=== PATIENT | male | born 1930 | race Caucasian/White ===

== ENCOUNTER 2018-06-03 12:58 | Inpatient (IN) | payer MEDICARE ==
[2018-06-03 13:33] LABS: Basophils % (A) 0 %; Eosinophils # (A) 0.2 k/uL (0-0.7); Eosinophils % (A) 3 %; HCT 40.6 % (39.0-53.0); HGB 13.2 gm/dL (13.0-17.5); Lymphocytes # (A) 1.7 k/uL (1.0-4.8); Lymphocytes % (A) 31 %; MCH 30.2 pg (25.0-35.0); MCHC 32.6 g/dL (31.0-37.0); MCV 92.6 fL (80.0-100.0); Mean Platelet Volume 8.9; Monocytes # (A) 0.4 k/uL (0-1.0); Monocytes % (A) 7 %; Neutrophils # (A) 3.2 k/uL (1.3-7.7); Neutrophils % (A) 57 %; Platelet Count 111 k/uL (150-450); RBC 4.38 m/uL (4.30-5.90); RDW 13.8 % (11.5-15.5); WBC 5.6 k/uL (3.8-10.6)
[2018-06-03 13:45] LABS: Albumin 4.1 g/dL (3.5-5.0); Calcium 9.5 mg/dL (8.4-10.2); Magnesium 1.9 mg/dL (1.6-2.3); Potassium 4.3 mmol/L (3.5-5.1); Total Bilirubin 0.7 mg/dL (0.2-1.3); Total Protein 6.9 g/dL (6.3-8.2)
--- NOTE | 2018-06-03 13:49 | XR ---
EXAMINATION TYPE: XR chest 2V DATE OF EXAM: 06/03/2018 COMPARISON: 11/16/2011 INDICATION: Chest pain TECHNIQUE: Frontal and lateral views of the chest are obtained. FINDINGS: The heart size is enlarged. The pulmonary vasculature is normal. There is mild elevation left diaphragm. Some blunting left costophrenic angle is likely related atele ctasis.. IMPRESSION: 1. Blunting of the posterior lateral left costophrenic angle. Atelectasis is favored over effusion. 2. Lungs are otherwise clear.
[2018-06-03 13:52] LABS: D-Dimer 0.44 mg/L FEU (<0.60); INR 1.1 (<1.2); Partial Thromboplastin Time 28.6 sec (22.0-30.0); Prothrombin Time 10.5 sec (9.0-12.0)
[2018-06-03 14:13] LABS: Creatine Kinase MB 1.6 ng/mL (0.0-2.4)
--- NOTE | 2018-06-03 14:15 | ED ---
General Adult HPI - General Chief complaint: Chest Pain Stated complaint: Chest Pain Source: patient, family Mode of arrival: wheelchair - History of Present Illness Initial comments: Dictation was produced using [employer] dictation software. please excuse any grammatical, word or spelling errors. Chief Complaint: Patient is a 88-year-old male past medical history of A. fib, coronary artery disease, hyperlipidemia, hypertension presents with abnormal labs. History of Present Illness: Patient's story begins several weeks ago. Patient had blood drawn prior to a [place] check up appointment. There was findings of electrolyte abnormalities. He was told to seek medical attention with any worsening symptoms. He ended up with his primary care physician's office Dr. mcguire who ran some basic labs. He is found have elevated troponin and elevated d-dimer. Patient was told about these results and told to come to the emergency department. Patient has been complaining of intermittent chest pain. Patient is strongly difficult of hearing. History is mostly obtained by family member who is at bedside. Patient is on Coumadin for atrial fibrillation. - Related Data Home Medications Medication Instructions Recorded Confirmed Acetaminophen/Diphenhydramine 1 tab PO HS PRN 06/03/18 06/03/18 [Tylenol PM Extra Strength] Ammonium Lactate Cream [Lac-Hydrin 1 applic TOPICAL BID 06/03/18 06/03/18 12% Cream] Aspirin EC [Ecotrin Low Dose] 81 mg PO DAILY 06/03/18 06/03/18 Colchicine 0.6 mg PO BID 06/03/18 06/03/18 Docusate [Colace] 100 mg PO DAILY PRN 06/03/18 06/03/18 Furosemide [Lasix] 40 mg PO DAILY 06/03/18 06/03/18 Isosorbide Mononitrate ER [Imdur] 15 mg PO DAILY 06/03/18 06/03/18 Metoprolol Tartrate [Lopressor] 25 mg PO TID 06/03/18 06/03/18 Nitroglycerin Sl Tabs [Nitrostat] 0.4 mg SUBLINGUAL Q5M PRN 06/03/18 06/03/18 methylPREDNISolone Dose Pack See Taper PO DIRECTED 06/03/18 06/03/18 [Medrol Dose Pack] Allergies Allergy/AdvReac Type Severity Reaction Status Date / Time No Known Allergies Allergy Verified 06/03/18 14:38 Review of Systems ROS Statement: Those systems with pertinent positive or pertinent negative responses have been documented in the HPI. ROS Other: All systems not noted in ROS Statement are negative. Past Medical History Past Medical History: Atrial Fibrillation, Coronary Artery Disease (CAD), Hyperlipidemia, Hypertension History of Any Multi-Drug Resistant Organisms: None Reported Past Surgical History: Heart Catheterization With Stent Additional Past Surgical History / Comment(s): NASAL. CABG Past Psychological History: No Psychological Hx Reported Smoking Status: Former smoker Past Alcohol Use History: None Reported Past Drug Use History: None Reported General Exam - General Exam Comments Initial Comments: PHYSICAL EXAM: General Impression: Alert and oriented x3, not in acute distress HEENT: Normocephalic atraumatic, extra-ocular movements intact, pupils equal and reactive to light bilaterally, mucous membranes moist. 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 And also has had intermittent chest pain for the last several days. On arrival shows tachycardia 108.Laboratory evaluation obtained. CBC unremarkable. Coag panel is unremarkable. D-dimer 0.44. This is decreased compared to d-dimer performed by primary care physician. Metabolic panel obtained showing no acute processes. Abdominal labs are unremarkable. Troponin is 0.209. Patient appears comfortable at this time. CT angios of the chest was obtained showing no evidence of pulmonary embolism. There is mild cardiomegaly with small to moderate-sized left pleural effusion. Patient has elevated troponin with no other alternative for why his troponin is high. It is likely that patient's troponin is elevated secondary to cardiac damage versus troponin leak. Patient given aspirin. He started on nitro paste. Patient is on apixaban. We will withhold heparin at this time. EKG does show some ST depressions in precordial leads. There is reasonably that these represent ischemia. This likely secondary to rate dependent ischemia. Patient beta blockers for RVR control. Repeat EKG does not show any dynamic changes. EKG interpretation: Ventricular rate 106, atrial fibrillation, QRS 90, QTC 470. No RI prolongation, no QTC prolongation, no ST or T-wave changes noted. Overall, this EKG is unremarkable - Lab Data Result diagrams: 06/03/18 13:15 06/03/18 13:15 Lab Results 06/03/18 06/03/18 06/03/18 Range/Units 13:15 13:15 13:15 WBC 5.6 (3.8-10.6) k/uL RBC 4.38 (4.30-5.90) m/uL Hgb 13.2 (13.0-17.5) gm/dL Hct 40.6 (39.0-53.0) % MCV 92.6 (80.0-100.0) fL MCH 30.2 (25.0-35.0) pg MCHC 32.6 (31.0-37.0) g/dL RDW 13.8 (11.5-15.5) % Plt Count 111 L (150-450) k/uL Neutrophils % 57 % Lymphocytes % 31 % Monocytes % 7 % Eosinophils % 3 % Basophils % 0 % Neutrophils # 3.2 (1.3-7.7) k/uL Lymphocytes # 1.7 (1.0-4.8) k/uL Monocytes # 0.4 (0-1.0) k/uL Eosinophils # 0.2 (0-0.7) k/uL Basophils # 0.0 (0-0.2) k/uL PT (9.0-12.0) sec INR (<1.2) APTT (22.0-30.0) sec D-Dimer (<0.60) mg/L FEU Sodium 139 (137-145) mmol/L Potassium 4.3 (3.5-5.1) mmol/L Chloride 101 (98-107) mmol/L Carbon Dioxide 27 (22-30) mmol/L Anion Gap 11 mmol/L BUN 19 (9-20) mg/dL Creatinine 0.85 (0.66-1.25) mg/dL Est GFR (CKD-EPI)AfAm 89 (>60 ml/min/1.73 sqM) Est GFR (CKD-EPI)NonAf 77 (>60 ml/min/1.73 sqM) Glucose 98 (74-99) mg/dL Calcium 9.5 (8.4-10.2) mg/dL Magnesium 1.9 (1.6-2.3) mg/dL Total Bilirubin 0.7 (0.2-1.3) mg/dL AST 25 (17-59) U/L ALT 26 (21-72) U/L Alkaline Phosphatase 67 (38-126) U/L Total Creatine Kinase 45 L (55-170) U/L CK-MB (CK-2) 1.6 (0.0-2.4) ng/mL CK-MB (CK-2) Rel Index 3.6 Troponin I 0.209 H* (0.000-0.034) ng/mL Total Protein 6.9 (6.3-8.2) g/dL Albumin 4.1 (3.5-5.0) g/dL 06/03/18 Range/Units 13:15 WBC (3.8-10.6) k/uL RBC (4.30-5.90) m/uL Hgb (13.0-17.5) gm/dL Hct (39.0-53.0) % MCV (80.0-100.0) fL MCH (25.0-35.0) pg MCHC (31.0-37.0) g/dL RDW (11.5-15.5) % Plt Count (150-450) k/uL Neutrophils % % Lymphocytes % % Monocytes % % Eosinophils % % Basophils % % Neutrophils # (1.3-7.7) k/uL Lymphocytes # (1.0-4.8) k/uL Monocytes # (0-1.0) k/uL Eosinophils # (0-0.7) k/uL Basophils # (0-0.2) k/uL PT 10.5 (9.0-12.0) sec INR 1.1 (<1.2) APTT 28.6 (22.0-30.0) sec D-Dimer 0.44 (<0.60) mg/L FEU Sodium (137-145) mmol/L Potassium (3.5-5.1) mmol/L Chloride (98-107) mmol/L Carbon Dioxide (22-30) mmol/L Anion Gap mmol/L BUN (9-20) mg/dL Creatinine (0.66-1.25) mg/dL Est GFR (CKD-EPI)AfAm (>60 ml/min/1.73 sqM) Est GFR (CKD-EPI)NonAf (>60 ml/min/1.73 sqM) Glucose (74-99) mg/dL Calcium (8.4-10.2) mg/dL Magnesium (1.6-2.3) mg/dL Total Bilirubin (0.2-1.3) mg/dL AST (17-59) U/L ALT (21-72) U/L Alkaline Phosphatase (38-126) U/L Total Creatine Kinase (55-170) U/L CK-MB (CK-2) (0.0-2.4) ng/mL CK-MB (CK-2) Rel Index Troponin I (0.000-0.034) ng/mL Total Protein (6.3-8.2) g/dL Albumin (3.5-5.0) g/dL Disposition Clinical Impression: Elevated troponin Disposition: ADMITTED IP TO THIS HOSP Condition: Fair Referrals: Sharla Crawford MD [Primary Care Provider] - 1-2 days Decision Time: 16:36
[2018-06-03 14:17] LABS: Troponin I 0.209 ng/mL (0.000-0.034)
--- NOTE | 2018-06-03 15:34 | CT ---
EXAMINATION TYPE: CT angio chest DATE OF EXAM: 06/03/2018 COMPARISON: Chest x-ray earlier today HISTORY: Chest pain and weakness. CT DLP: 574.1 mGycm. Automated Exposure Control for Dose Reduction was Utilized. CONTRAST: CTA scan of the thorax is performed with IV Contrast, patient injected with 87ml mL of Isovue 370, pu lmonary embolism protocol. MIP Images are created on CT scanner and reviewed. FINDINGS: LUNGS: Elevated left hemidiaphragm is present. There is small to moderate-sized left pleural fluid ef fusion or fluid collection. Small amount of fluid is seen within the fissures of the left lung. There is 7 mm calcified nodule left mid lung anteriorly axial image 74. There is left basilar atelectasis and/or Limited infiltrate just above elevated left hemidiaphragm. Right lung is predominantly clear, some patchy dependent atelectasis is present.. MEDIASTINUM: There is satisfactory enhancement of the pulmonary artery and its branches, there is no CT evidence for pulmonary embolism. There are no greater than 1 cm hilar or mediastinal lymph nodes. No significant pericardial effusion is seen. Cardiomegaly is present. There is moderate to severe left atrial dilatation. Post CABG changes with mediastinal clips and sternal wires is identified. The re is reflux of contrast into IVC and hepatic veins suggesting right heart failure. There is moderate to severe calcified plaque of descending aorta. There is ascending aortic aneurysm measuring up to 4 .3 cm diameter on axial image 60. OTHER: There is moderate multilevel anterior and lateral spurring in the mid to lower thoracic spine . IMPRESSION: 1. No CT evidence for acute pulmonary embolism. Cardiomegaly with small to moderate-sized left pleural effusion and associated basilar atelectasis and/or Limited acute infiltrate.
[2018-06-03] MEDS ORDERED: NITROGLYCERIN OINT 1 INCH/GM PACKET TOPICAL STA (16:14)
[2018-06-03] MEDS ORDERED: ASPIRIN 81 MG PO STA (16:14)
[2018-06-03] MEDS ORDERED: NITROGLYCERIN SL TABS 0.4 MG TAB SUBLINGUAL PRN ×2 (16:14→18:13)
[2018-06-03] MEDS ORDERED: ACETAMINOPHEN TAB 500 MG TAB PO PRN (18:13)
[2018-06-03] MEDS ORDERED: DOCUSATE 100 MG CAP PO PRN (18:13)
[2018-06-03] MEDS ORDERED: diphenhydrAMINE 25 MG CAP PO PRN (18:19)
[2018-06-03 19:38] LABS: Creatine Kinase MB 2.1 ng/mL (0.0-2.4)
[2018-06-03 19:41] LABS: Troponin I 0.357 ng/mL (0.000-0.034)
[2018-06-03] MEDS: AMMONIUM LACTATE 12% CREAM 140 GM TUBE TOPICAL SCH (19:58)
[2018-06-03] MEDS: ATORVASTATIN 40 MG TAB PO SCH (19:58)
[2018-06-03] MEDS: METOPROLOL TARTRATE 25 MG TAB PO SCH (19:59)
[2018-06-03] MEDS: COLCHICINE 0.6 MG EACH PO SCH (19:59)
[2018-06-03] MEDS ORDERED: APIXABAN 2.5 MG TABLET PO SCH (21:00)
--- NOTE | 2018-06-03 21:50 | P.HPIM ---
History of Present Illness H&P Date: 06/03/18 88 years old male patient of Dr. Crawford with the past medical history of atrial fibrillation, coronary artery disease status post triple-vessel CABGwith recent stent in 2009 comes in with acute onset substernal chest pain past associated with shortness of breath. He was seen in the office by Dr. Crawford.Patient had recent blood chronically checkup appointment and was found to have some electrolyte abnormality. Patient is found to the hospital by Dr. Crawford for evaluation. On evaluation in the ER patient had 0.209 with a second troponin 0.357. EKG showed significant ST depression in lead V1 to V6 with a rhythm in atrial fibrillation Chest pain improved with nitroglycerin paste. Patient was continued oneliquis . Cardiology consult was placed with plan for cardiac cath morning. Patient will be nothing by mouth Review of Systems Constitutional: Denies chills, Denies fever, Denies lethargy, Denies malaise, Denies poor appetite, Denies weakness, Denies weight loss Eyes: denies decreased vision, denies diplopia, denies discharge, denies pain Ears: deny: decreased hearing Ears, nose, mouth and throat: Denies dental pain, Denies headache, Denies nasal discharge, Denies nose pain Cardiovascular: Endorses chest pain, endorses decreased exercise tolerance, Denies edema, Denies high blood pressure, endorses irregular heart beat, Denies palpitations, Denies paroxysmal nocturnal dyspnea, Denies rapid heart beat, e ndorses shortness of breath Respiratory: Denies congestion, Denies cough, Denies cough with sputum, Denies dyspnea, Denies home oxygen, Denies wheezing Gastrointestinal: Denies abdominal pain, Denies change in bowel habits, Denies coffee ground emesis, Denies early satiety, Denies excessive gas, Denies heartburn, Denies hematemesis, Denies hematochezia, Denies loss of appetite, Denies nausea, Denies vomiting Genitourinary: Denies dysuria, Denies flank pain, Denies kidney stones, Denies menorrhagia, Denies urgency, Denies urinary frequency Musculoskeletal: Denies gait dysfunction, Denies limitation of motion, Denies morning stiffness, Denies muscle cramps Integumentary: Denies rash, Denies wounds, Denies brittle nails, Denies change in hair/nails, Denies darkening of skin Neurological: Denies balance difficulties, Denies change in speech, Denies double vision, Denies gait dysfunction, Denies loss of vision, Denies motor disturbance, Denies numbness, Denies paralysis, Denies paresthesias, Denies seizures Psychiatric: Denies anxiety, Denies depression Endocrine: Denies excessive sweating, Denies excessive thirst, Denies high blood sugars, Denies palpitations Hematologic/Lymphatic: Denies easy bruising, Denies lymphadenopathy Past Medical History Past Medical History: Atrial Fibrillation, Coronary Artery Disease (CAD), Cancer , GERD/Reflux, Hyperlipidemia, Hypertension, Myocardial Infarction (ND), Osteoarthritis (OA), Prostate Disorder Additional Past Medical History / Comment(s): skin cancer(nose), gout, past shingles 2-3 years ago and since has had a shingles vaccine 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 Last Myocardial Infarction Date:: 1998, not sure if he had one in 2009 or not History of Any Multi-Drug Resistant Organisms: None Reported Past Surgical History: Adenoidectomy, Coronary Bypass/CABG, Heart Catheterization With Stent, Prostate Surgery, Tonsillectomy Additional Past Surgical History / Comment(s): triple vessle cabg- valles to lad, svg toom and svg to rca,colonoscopy,. prostatectomy(pt stated not cancer), carpal tunnel pt not sure what side) Past Anesthesia/Blood Transfusion Reactions: No Reported Reaction Date of Last Stent Placement:: 2009 Smoking Status: Former smoker - Past Family History Mother Family Medical History: No Reported History Additional Family Medical History / Comment(s): from old age Father Family Medical History: Cancer Additional Family Medical History / Comment(s): throat cancer Medications and Allergies Home Medications Medication Instructions Recorded Confirmed Type Acetaminophen/Diphenhydramine 1 tab PO HS PRN 06/03/18 06/03/18 History [Tylenol PM Extra Strength] Ammonium Lactate Cream [Lac-Hydrin 1 applic TOPICAL BID 06/03/18 06/03/18 History 12% Cream] Aspirin EC [Ecotrin Low Dose] 81 mg PO DAILY 06/03/18 06/03/18 History Colchicine 0.6 mg PO BID 06/03/18 06/03/18 History Docusate [Colace] 100 mg PO DAILY PRN 06/03/18 06/03/18 History Furosemide [Lasix] 40 mg PO DAILY 06/03/18 06/03/18 History Isosorbide Mononitrate ER [Imdur] 15 mg PO DAILY 06/03/18 06/03/18 History Metoprolol Tartrate [Lopressor] 25 mg PO TID 06/03/18 06/03/18 History Nitroglycerin Sl Tabs [Nitrostat] 0.4 mg SUBLINGUAL Q5M PRN 06/03/18 06/03/18 History methylPREDNISolone Dose Pack See Taper PO DIRECTED 06/03/18 06/03/18 History [Medrol Dose Pack] Allergies Allergy/AdvReac Type Severity Reaction Status Date / Time No Known Allergies Allergy Verified 06/03/18 14:38 Physical Exam Vitals: Vital Signs Temp Pulse Pulse Pulse Resp BP BP 06/03/18 20:00 97.4 F L 75 16 102/61 06/03/18 17:30 96.3 F L 90 18 136/87 06/03/18 16:52 98 F 83 18 136/80 06/03/18 16:10 113 H 16 132/90 06/03/18 15:05 71 16 149/70 06/03/18 14:29 94 18 145/73 06/03/18 13:23 108 H 18 06/03/18 13:03 101 H 18 156/98 06/03/18 13:00 98.1 F 113 H 18 113/75 Pulse Ox 06/03/18 20:00 96 06/03/18 17:30 98 06/03/18 16:52 98 06/03/18 16:10 100 06/03/18 15:05 100 06/03/18 14:29 100 06/03/18 13:23 06/03/18 13:03 100 06/03/18 13:00 98 Intake and Output 06/03/18 06/03/18 06/03/18 06:59 14:59 22:59 Other: Weight 78.018 kg - Constitutional General appearance: cooperative, no acute distress, obese - EENT Eyes: anicteric sclerae, PERRLA, normal appearance ENT: hearing grossly normal - Neck Neck: no lymphadenopathy, normal ROM, no other, no rigidity, no stridor, no thyromegaly - Respiratory Respiratory: bilateral: CTA, negative: diminished, dullness, rales, rhonchi - Cardiovascular Rhythm: Irregularly irregular Heart sounds: normal: S1, S2 Abnormal Heart Sounds: 2+ systolic murmur, no diastolic murmur, no rub, no S3 Gallop, no S4 Gallop, no click, no other - Gastrointestinal General gastrointestinal: normal bowel sounds, soft nontender - Integumentary Integumentary: no rash - Neurologic Neurologic: CNII-XII intact - Musculoskeletal Musculoskeletal: Gait not assessed, strength equal bilaterally - Psychiatric Psychiatric: A&O x's 3, appropriate affect Results CBC & Chem 7: 06/03/18 13:15 06/03/18 13:15 Labs: Abnormal Lab Results - Last 24 Hours (Table) 06/03/18 06/03/18 06/03/18 Range/Units 13:15 13:15 18:57 Plt Count 111 L (150-450) k/uL Total Creatine Kinase 45 L 47 L (55-170) U/L Troponin I 0.209 H* 0.357 H* (0.000-0.034) ng/mL Thrombosis Risk Factor Assmnt - DVT/VTE Prophylaxis DVT/VTE Prophylaxis: Pharmacologic Prophylaxis ordered Assessment and Plan Plan: #1 acute chest pain likely cardiac with previous history of coronary artery disease. Switch eliquis to heparin drip. Nothing by mouth after midnight. Cardiology consult. EKG with significant ST depression V1 to V6 consistent with anterior lateral infarct. Echocardiogram ordered for the morning. Repeat EKG in the morning. Possible cardiac cath in the morning #2 history of coronary artery disease status post cardiac bypass with recent stent in 2009. Continue daily aspirin, metoprolol 25 twice a day, Lipitor 40 mg daily at bedtime #3 bilateral pleural effusion on CTA . Switch to by mouth Lasix to IV Lasix 40 daily. Hold if systolic blood pressure less than 90. Echocardiogram ordered #4 history of atrial fibrillation. Continue digoxin. Metoprolol 25 mg twice a day 5 hypertension continue metoprolol 25 po Twice daily. Lasix IV 40 by mouth daily. Hold systolic blood pressure less than 90 #6 hyperlipidemia continue atorvastatin 40 mg by mouth daily #DVT prophylaxis with heparin drip #8 GI prophylaxis with Pepcid 20 mg by mouth daily CODE STATUS DO NOT RESUSCITATE Disposition patient may need 1-2 inpatient nights with possible cardiac cath this morning
[2018-06-03] MEDS: NITROGLYCERIN OINT 1 INCH/GM PACKET TOPICAL SCH (23:54)
[2018-06-04 03:17] LABS: Cholesterol 125 mg/dL (<200); HDL Cholesterol 37 mg/dL (40-60); LDL Cholesterol,Calculated 72 mg/dL (0-99); Triglycerides 79 mg/dL (<150)
[2018-06-04 03:39] LABS: Creatine Kinase MB 3.1 ng/mL (0.0-2.4)
[2018-06-04 03:40] LABS: Basophils % (A) 0 %; Eosinophils # (A) 0.2 k/uL (0-0.7); Eosinophils % (A) 3 %; HCT 37.1 % (39.0-53.0); Lymphocytes # (A) 1.1 k/uL (1.0-4.8); Lymphocytes % (A) 22 %; MCH 30.3 pg (25.0-35.0); MCHC 32.3 g/dL (31.0-37.0); MCV 93.9 fL (80.0-100.0); Mean Platelet Volume 8.9; Monocytes # (A) 0.4 k/uL (0-1.0); Monocytes % (A) 7 %; Neutrophils # (A) 3.4 k/uL (1.3-7.7); Neutrophils % (A) 66 %; RBC 3.95 m/uL (4.30-5.90); RDW 13.9 % (11.5-15.5); WBC 5.2 k/uL (3.8-10.6)
[2018-06-04 03:41] LABS: Platelet Count 99 k/uL (150-450); Troponin I 0.725 ng/mL (0.000-0.034)
[2018-06-04] MEDS: NITROGLYCERIN OINT 1 INCH/GM PACKET TOPICAL SCH ×4 (06:15→23:50)
[2018-06-04] MEDS: METOPROLOL TARTRATE 25 MG TAB PO SCH ×2 (07:43→20:12)
[2018-06-04] MEDS: ASPIRIN 81 MG PO SCH (07:43)
[2018-06-04] MEDS: COLCHICINE 0.6 MG EACH PO SCH ×2 (07:43→20:12)
[2018-06-04] MEDS: FUROSEMIDE 10 MG/ML 4 ML VIAL IV SCH (07:44)
[2018-06-04] MEDS: AMMONIUM LACTATE 12% CREAM 140 GM TUBE TOPICAL SCH ×2 (07:44→20:11)
[2018-06-04] MEDS ORDERED: HEPARIN SOD,PORK IN 0.45% NACL 25,000 UNIT in 0.45% NACL 1 500ML.BAG IV SCH (08:00)
[2018-06-04] MEDS ORDERED: HEPARIN SODIUM,PORCINE 5,000 UNIT/ML 1 ML VIAL IV ONE (08:00)
[2018-06-04] MEDS ORDERED: HEPARIN SODIUM,PORCINE 5,000 UNIT/ML 1 ML VIAL IV PRN (08:00)
[2018-06-04] MEDS ORDERED: FUROSEMIDE 40 MG TAB PO SCH (09:00)
[2018-06-04] MEDS ORDERED: DIGOXIN 125 MCG TAB PO SCH (09:00)
[2018-06-04] MEDS ORDERED: ASPIRIN 325 MG TAB PO SCH (09:00)
--- NOTE | 2018-06-04 10:00 | P.CRDCN ---
<Georgette Gao E - Last Filed: 06/04/18 09:44> History of Present Illness Consult date: 06/04/18 Requesting physician: Hodan Bunch Consult reason: non-Q-wave [place] Chief complaint: Chest pain History of present illness: This is a pleasant 88-year-old gentleman with known history of coronary artery disease, he states he had history of coronary artery bypass grafting surgery in 1998, he also states that subsequent to that he had 2 times stents placed, he forgets exactly how long ago it was but states that he thinks it was approximately 7 or 8 years ago. He has history also of persistent atrial fibrillation, hypertension, hyperlipidemia, GERD. He presents to the hospital on this occasion with symptoms of chest pressure and heaviness which radiates across his chest, he states that he also feels mildly short of breath at these times. These symptoms usually occur when he wakes up in the morning, he has been experiencing these symptoms off and on for the past couple of weeks , prior to that he states he had been feeling quite well overall. Chest x-ray on admission here showed blunting of the posterior lateral left costophrenic angle, atelectasis favored over effusion. Lungs otherwise clear. CTA of the chest negative for pulmonary embolism, small to moderate left-sided pleural effusion noted. EKG on arrival here showed atrial fibrillation with ST depression noted in the lateral leads. Subsequent EKG continues to show atrial fibrillation with ST depression in the anterior lateral leads. Blood pressure on arrival here 114/74, heart rate 100, 98% on room air. I pressure this morning 126/60 heart rate in the 80s, 97% on room air. Laboratory data has been reviewed, white blood cell count 5.2, hemoglobin 12.0, platelet count 99, d -dimer 0.4. Sodium 139, potassium 4.3, BUN 19, creatinine 0.8. Stool for occult blood was negative. Troponins 0.20, 0.35, 0.72. Patient on Eliquis for anticoagulation, this was discontinued and he was initiated on IV heparin drip. He is currently chest pain-free. Past Medical History Past Medical History: Atrial Fibrillation, Coronary Artery Disease (CAD), Cancer , GERD/Reflux, Hyperlipidemia, Hypertension, Myocardial Infarction ([place]), Osteoarthritis (OA), Prostate Disorder Additional Past Medical History / Comment(s): skin cancer(nose), gout, past shingles 2-3 years ago and since has had a shingles vaccine but program writer unable to verify date at time of this admit. Last Myocardial Infarction Date:: 1998, not sure if he had one in 2009 or not History of Any Multi-Drug Resistant Organisms: None Reported Past Surgical History: Adenoidectomy, Coronary Bypass/CABG, Heart Catheterization With Stent, Prostate Surgery, Tonsillectomy Additional Past Surgical History / Comment(s): triple vessle cabg- valles to lad, svg toom and svg to rca,colonoscopy,. prostatectomy(pt stated not cancer), carpal tunnel pt not sure what side) Past Anesthesia/Blood Transfusion Reactions: No Reported Reaction Date of Last Stent Placement:: 2009 Smoking Status: Former smoker - Past Family History Mother Family Medical History: No Reported History Additional Family Medical History / Comment(s): from old age Father Family Medical History: Cancer Additional Family Medical History / Comment(s): throat cancer Medications and Allergies Home Medications Medication Instructions Recorded Confirmed Type Acetaminophen/Diphenhydramine 1 tab PO HS PRN 06/03/18 06/03/18 History [Tylenol PM Extra Strength] Ammonium Lactate Cream [Lac-Hydrin 1 applic TOPICAL BID 06/03/18 06/03/18 History 12% Cream] Aspirin EC [Ecotrin Low Dose] 81 mg PO DAILY 06/03/18 06/03/18 History Colchicine 0.6 mg PO BID 06/03/18 06/03/18 History Docusate [Colace] 100 mg PO DAILY PRN 06/03/18 06/03/18 History Furosemide [Lasix] 40 mg PO DAILY 06/03/18 06/03/18 History Isosorbide Mononitrate ER [Imdur] 15 mg PO DAILY 06/03/18 06/03/18 History Metoprolol Tartrate [Lopressor] 25 mg PO TID 06/03/18 06/03/18 History Nitroglycerin Sl Tabs [Nitrostat] 0.4 mg SUBLINGUAL Q5M PRN 06/03/18 06/03/18 History methylPREDNISolone Dose Pack See Taper PO DIRECTED 06/03/18 06/03/18 History [Medrol Dose Pack] Allergies Allergy/AdvReac Type Severity Reaction Status Date / Time No Known Allergies Allergy Verified 06/03/18 14:38 Physical Exam Vitals: Vital Signs Temp Pulse Pulse Pulse Resp BP BP 06/04/18 08:00 98 F 80 16 127/63 06/04/18 03:40 52 L 16 115/64 06/04/18 00:00 56 L 16 129/67 06/03/18 20:00 97.4 F L 75 16 102/61 06/03/18 17:30 96.3 F L 90 18 136/87 06/03/18 16:52 98 F 83 18 136/80 06/03/18 16:10 113 H 16 132/90 06/03/18 15:05 71 16 149/70 06/03/18 14:29 94 18 145/73 06/03/18 13:23 108 H 18 06/03/18 13:03 101 H 18 156/98 06/03/18 13:00 98.1 F 113 H 18 113/75 Pulse Ox 06/04/18 08:00 97 06/04/18 03:40 98 06/04/18 00:00 94 L 06/03/18 20:00 96 06/03/18 17:30 98 06/03/18 16:52 98 06/03/18 16:10 100 06/03/18 15:05 100 06/03/18 14:29 100 06/03/18 13:23 06/03/18 13:03 100 06/03/18 13:00 98 Intake and Output 06/03/18 06/04/18 06/04/18 22:59 06:59 14:59 Output Total 150 200 Balance -150 -200 Output: Urine 150 200 Other: Voiding Method Toilet Toilet Urinal Urinal # Voids 2 Weight 76.1 kg PHYSICAL EXAMINATION: GENERAL: This is an 88-year-old gentleman in no acute distress at the time of my examination HEENT: Head is atraumatic, normocephalic. Pupils equal, round. Sclera anicteric. Conjunctiva are clear. Mucous membranes of the mouth are moist. Neck is supple. There is no elevated jugular venous pressure. No carotid bruit is heard. HEART EXAMINATION: Heart S1, S2 normal. No murmur or gallop heard. CHEST EXAMINATION: Lungs are clear with diminished air entry to bilateral bases. ABDOMEN: Soft, nontender. Bowel sounds are heard. No organomegaly noted. EXTREMITIES: 2+ peripheral pulses with no evidence of peripheral edema and no calf tenderness noted. NEUROLOGIC patient is awake, alert and oriented X3. . Results 06/04/18 02:45 06/03/18 13:15 Cardiac Enzymes 06/03/18 06/03/18 06/03/18 Range/Units 13:15 13:15 18:57 AST 25 (17-59) U/L CK-MB (CK-2) 1.6 2.1 (0.0-2.4) ng/mL Troponin I 0.209 H* 0.357 H* (0.000-0.034) ng/mL 06/04/18 Range/Units 02:45 AST (17-59) U/L CK-MB (CK-2) 3.1 H (0.0-2.4) ng/mL Troponin I 0.725 H* (0.000-0.034) ng/mL Coagulation 06/03/18 06/04/18 Range/Units 13:15 02:45 PT 10.5 (9.0-12.0) sec APTT 28.6 29.5 (22.0-30.0) sec Lipids 06/04/18 Range/Units 02:45 Triglycerides 79 (<150) mg/dL Cholesterol 125 (<200) mg/dL HDL Cholesterol 37 L (40-60) mg/dL CBC 06/03/18 06/04/18 Range/Units 13:15 02:45 WBC 5.6 5.2 (3.8-10.6) k/uL RBC 4.38 3.95 L (4.30-5.90) m/uL Hgb 13.2 12.0 L (13.0-17.5) gm/dL Hct 40.6 37.1 L (39.0-53.0) % Plt Count 111 L 99 L (150-450) k/uL Comprehensive Metabolic Panel 06/03/18 Range/Units 13:15 Sodium 139 (137-145) mmol/L Potassium 4.3 (3.5-5.1) mmol/L Chloride 101 (98-107) mmol/L Carbon Dioxide 27 (22-30) mmol/L BUN 19 (9-20) mg/dL Creatinine 0.85 (0.66-1.25) mg/dL Glucose 98 (74-99) mg/dL Calcium 9.5 (8.4-10.2) mg/dL AST 25 (17-59) U/L ALT 26 (21-72) U/L Alkaline Phosphatase 67 (38-126) U/L Total Protein 6.9 (6.3-8.2) g/dL Albumin 4.1 (3.5-5.0) g/dL Current Medications Generic Name Dose Route Start Last Admin Trade Name Freq PRN Reason Stop Dose Admin Acetaminophen 500 mg 06/03/18 18:13 Tylenol Tab PO HS PRN Pain Aspirin 81 mg 06/04/18 09:00 06/04/18 07:43 Aspirin PO 81 mg DAILY PA Administration Atorvastatin Calcium 40 mg 06/03/18 21:00 06/03/18 19:58 Lipitor PO 40 mg HS PA Administration Colchicine 0.6 mg 06/03/18 21:00 06/04/18 07:43 Colcrys PO 0.6 mg BID PA Administration Digoxin 125 mcg 06/04/18 09:00 06/04/18 07:43 Lanoxin PO 125 mcg [id number] [facility] Administration Diphenhydramine HCl 25 mg 06/03/18 18:19 Benadryl PO HS PRN SLEEP/PAIN Docusate Sodium 100 mg 06/03/18 18:13 Colace PO DAILY PRN Constipation Furosemide 40 mg 06/04/18 09:00 06/04/18 07:44 Lasix IV 40 mg DAILY PA Administration Heparin Sodium (Porcine) 0 unit 06/04/18 08:00 Heparin IV PER PROTOCOL PRN Low PTT Protocol Heparin Sodium/Sodium Chloride 500 mls @ 18.72 mls/hr 06/04/18 08:00 08:56 25,000 unit/ Sodium Chloride IV 12 units/kg/hr .Q24H PA 18.72 mls/hr Administration Protocol 12 UNITS/KG/HR Lactic Acid 1 applic 06/03/18 21:00 06/04/18 07:44 Ammonium Lactate TOPICAL 1 applic BID PA Administration Metoprolol Tartrate 25 mg 06/03/18 21:00 06/04/18 07:43 Lopressor PO 25 mg BID PA Administration Nitroglycerin 0.4 mg 06/03/18 18:13 Nitrostat SUBLINGUAL Q5M PRN Chest Pain Nitroglycerin 1 inch 06/04/18 00:00 06/04/18 06:15 Nitro-Bid Oint TOPICAL 1 inch Q6HR PA Administration Intake and Output 06/03/18 06/04/18 06/04/18 22:59 06:59 14:59 Output Total 150 200 Balance -150 -200 Output: Urine 150 200 Other: Voiding Method Toilet Toilet Urinal Urinal # Voids 2 Weight 76.1 kg 06/04/18 02:45 06/03/18 13:15 Assessment and Plan Plan: Assessment and plan #1 non-ST elevation myocardial infarction #2 known history of coronary artery disease with prior bypass surgery in 1998 subsequent to that patient did undergo successful stenting of the saphenous vein graft to the right coronary artery in 2009 #3 hypertension #4 hyperipidemia #5 chronic persistent atrial fibrillation, on Eliquis at home for anticoagulation, this has currently been placed on hold and patient is on IV heparin drip. Plan We will obtain an echocardiogram with Doppler study. Continue baby aspirin, Lipitor, patient is currently on IV heparin drip which we will continue. He was also initiated on IV Lasix in the emergency room. Patient may need to undergo cardiac catheterization, the risks and benefits were again explained to the patient in detail, further recommendations to follow. DNP note has been reviewed, I agree with a documented findings and plan of care. Patient was seen and examined. <Gaudencio Perez - Last Filed: 06/04/18 12:19> Physical Exam Vitals: Vital Signs Temp Pulse Pulse Pulse Resp BP BP 06/04/18 12:00 98 F 117 H 18 128/64 06/04/18 08:00 98 F 80 16 127/63 06/04/18 03:40 52 L 16 115/64 06/04/18 00:00 56 L 16 129/67 06/03/18 20:00 97.4 F L 75 16 102/61 06/03/18 17:30 96.3 F L 90 18 136/87 06/03/18 16:52 98 F 83 18 136/80 06/03/18 16:10 113 H 16 132/90 06/03/18 15:05 71 16 149/70 06/03/18 14:29 94 18 145/73 06/03/18 13:23 108 H 18 06/03/18 13:03 101 H 18 156/98 06/03/18 13:00 98.1 F 113 H 18 113/75 Pulse Ox 06/04/18 12:00 98 06/04/18 08:00 97 06/04/18 03:40 98 06/04/18 00:00 94 L 06/03/18 20:00 96 06/03/18 17:30 98 06/03/18 16:52 98 06/03/18 16:10 100 06/03/18 15:05 100 06/03/18 14:29 100 06/03/18 13:23 06/03/18 13:03 100 06/03/18 13:00 98 Intake and Output 06/03/18 06/04/18 06/04/18 22:59 06:59 14:59 Output Total 150 760 Balance -150 -760 Output: Urine 150 760 Other: Voiding Method Toilet Toilet Urinal Urinal # Voids 2 Weight 76.1 kg Results 06/04/18 02:45 06/03/18 13:15 Cardiac Enzymes 06/03/18 06/03/18 06/03/18 Range/Units 13:15 13:15 18:57 AST 25 (17-59) U/L CK-MB (CK-2) 1.6 2.1 (0.0-2.4) ng/mL Troponin I 0.209 H* 0.357 H* (0.000-0.034) ng/mL 06/04/18 Range/Units 02:45 AST (17-59) U/L CK-MB (CK-2) 3.1 H (0.0-2.4) ng/mL Troponin I 0.725 H* (0.000-0.034) ng/mL Coagulation 06/03/18 06/04/18 Range/Units 13:15 02:45 PT 10.5 (9.0-12.0) sec APTT 28.6 29.5 (22.0-30.0) sec Lipids 06/04/18 Range/Units 02:45 Triglycerides 79 (<150) mg/dL Cholesterol 125 (<200) mg/dL HDL Cholesterol 37 L (40-60) mg/dL CBC 06/03/18 06/04/18 Range/Units 13:15 02:45 WBC 5.6 5.2 (3.8-10.6) k/uL RBC 4.38 3.95 L (4.30-5.90) m/uL Hgb 13.2 12.0 L (13.0-17.5) gm/dL Hct 40.6 37.1 L (39.0-53.0) % Plt Count 111 L 99 L (150-450) k/uL Comprehensive Metabolic Panel 06/03/18 Range/Units 13:15 Sodium 139 (137-145) mmol/L Potassium 4.3 (3.5-5.1) mmol/L Chloride 101 (98-107) mmol/L Carbon Dioxide 27 (22-30) mmol/L BUN 19 (9-20) mg/dL Creatinine 0.85 (0.66-1.25) mg/dL Glucose 98 (74-99) mg/dL Calcium 9.5 (8.4-10.2) mg/dL AST 25 (17-59) U/L ALT 26 (21-72) U/L Alkaline Phosphatase 67 (38-126) U/L Total Protein 6.9 (6.3-8.2) g/dL Albumin 4.1 (3.5-5.0) g/dL Current Medications Generic Name Dose Route Start Last Admin Trade Name Freq PRN Reason Stop Dose Admin Acetaminophen 500 mg 06/03/18 18:13 Tylenol Tab PO HS PRN Pain Alprazolam 0.25 mg 06/04/18 10:49 Xanax PO Q6HR PRN Mild Anxiety Alprazolam 0.5 mg 06/04/18 10:49 Xanax PO Q6HR PRN Moderate Anxiety Aspirin 81 mg 06/04/18 09:00 06/04/18 07:43 Aspirin PO 81 mg DAILY PA Administration Atorvastatin Calcium 40 mg 06/03/18 21:00 06/04/18 11:24 Lipitor PO Not Given HS PA Colchicine 0.6 mg 06/03/18 21:00 06/04/18 07:43 Colcrys PO 0.6 mg BID PA Administration Digoxin 125 mcg 06/04/18 09:00 06/04/18 07:43 Lanoxin PO 125 mcg MoTuWeThFrSa PA Administration Diphenhydramine HCl 25 mg 06/03/18 18:19 Benadryl PO HS PRN SLEEP/PAIN Docusate Sodium 100 mg 06/03/18 18:13 Colace PO DAILY PRN Constipation Furosemide 40 mg 06/04/18 09:00 06/04/18 07:44 Lasix IV 40 mg DAILY PA Administration Heparin Sodium (Porcine) 0 unit 06/04/18 08:00 Heparin IV PER PROTOCOL PRN Low PTT Protocol Heparin Sodium/Sodium Chloride 500 mls @ 18.72 mls/hr 06/04/18 08:00 08:56 25,000 unit/ Sodium Chloride IV 12 units/kg/hr .Q24H PA 18.72 mls/hr Administration Protocol 12 UNITS/KG/HR Sodium Chloride 1,000 ml/ IV 1,000 mls @ 76.1 mls/hr 06/04/18 10:49 06/04/18 11:20 Solution IV 06/04/18 23:57 76.1 mls/hr .Q13H9M ONE Administration 1 ML/KG/HR Lactic Acid 1 applic 06/03/18 21:00 06/04/18 07:44 Ammonium Lactate TOPICAL 1 applic BID [facility] Administration Metoprolol Tartrate 25 mg 06/03/18 21:00 06/04/18 07:43 Lopressor PO 25 mg BID [facility] Administration Nitroglycerin 1 inch 06/04/18 00:00 06/04/18 06:15 Nitro-Bid Oint TOPICAL 1 inch Q6HR [facility] Administration Nitroglycerin 0.4 mg 06/04/18 10:49 Nitrostat SUBLINGUAL Q5M PRN Chest Pain Intake and Output 06/03/18 06/04/18 06/04/18 22:59 06:59 14:59 Output Total 150 760 Balance -150 -760 Output: Urine 150 760 Other: Voiding Method Toilet Toilet Urinal Urinal # Voids 2 Weight 76.1 kg 06/04/18 02:45 06/03/18 13:15
[2018-06-04] MEDS ORDERED: ASPIRIN 325 MG TAB PO STA (10:49)
[2018-06-04] MEDS ORDERED: NITROGLYCERIN SL TABS 0.4 MG TAB SUBLINGUAL PRN ×2 (10:49→15:00)
[2018-06-04] MEDS ORDERED: ALPRAZolam 0.5 MG TAB PO PRN (10:49)
[2018-06-04] MEDS ORDERED: ALPRAZolam 0.25 MG TAB PO PRN (10:49)
[2018-06-04] MEDS ORDERED: SODIUM CHLORIDE 0.9% 1,000 ML in EMPTY BAG 1 BAG IV ONE (10:49)
[2018-06-04] MEDS ORDERED: ATORVASTATIN 80 MG TAB PO STA (10:49)
[2018-06-04] MEDS: ATORVASTATIN 40 MG TAB PO SCH (11:24)
--- NOTE | 2018-06-04 12:19 | P.CRDCN ---
History of Present Illness History of present illness: Patient interviewed and examined. Discussed with nurse practitioner. Discussed with patient. Admitted with a non-Q-wave myocardial infarction with EKG changes. Discussed with Dr. Barrera and we'll proceed with coronary angiography today Patient interviewed and examined by me Past Medical History Past Medical History: Atrial Fibrillation, Coronary Artery Disease (CAD), Cancer , GERD/Reflux, Hyperlipidemia, Hypertension, Myocardial Infarction ([place]), Osteoarthritis (OA), Prostate Disorder Additional Past Medical History / Comment(s): skin cancer(nose), gout, past shingles 2-3 years ago and since has had a shingles vaccine but senior underwriter unable to verify date at time of this admit. Last Myocardial Infarction Date:: 1998, not sure if he had one in 2009 or not History of Any Multi-Drug Resistant Organisms: None Reported Past Surgical History: Adenoidectomy, Coronary Bypass/CABG, Heart Catheterization With Stent, Prostate Surgery, Tonsillectomy Additional Past Surgical History / Comment(s): triple vessle cabg- valles to lad, svg toom and svg to rca,colonoscopy,. prostatectomy(pt stated not cancer), carpal tunnel pt not sure what side) Past Anesthesia/Blood Transfusion Reactions: No Reported Reaction Date of Last Stent Placement:: 2009 Smoking Status: Former smoker - Past Family History Mother Family Medical History: No Reported History Additional Family Medical History / Comment(s): from old age Father Family Medical History: Cancer Additional Family Medical History / Comment(s): throat cancer Medications and Allergies Home Medications Medication Instructions Recorded Confirmed Type Acetaminophen/Diphenhydramine 1 tab PO HS PRN 06/03/18 06/03/18 History [Tylenol PM Extra Strength] Ammonium Lactate Cream [Lac-Hydrin 1 applic TOPICAL BID 06/03/18 06/03/18 History 12% Cream] Aspirin EC [Ecotrin Low Dose] 81 mg PO DAILY 06/03/18 06/03/18 History Colchicine 0.6 mg PO BID 06/03/18 06/03/18 History Docusate [Colace] 100 mg PO DAILY PRN 06/03/18 06/03/18 History Furosemide [Lasix] 40 mg PO DAILY 06/03/18 06/03/18 History Isosorbide Mononitrate ER [Imdur] 15 mg PO DAILY 06/03/18 06/03/18 History Metoprolol Tartrate [Lopressor] 25 mg PO TID 06/03/18 06/03/18 History Nitroglycerin Sl Tabs [Nitrostat] 0.4 mg SUBLINGUAL Q5M PRN 06/03/18 06/03/18 History methylPREDNISolone Dose Pack See Taper PO DIRECTED 06/03/18 06/03/18 History [Medrol Dose Pack] Allergies Allergy/AdvReac Type Severity Reaction Status Date / Time No Known Allergies Allergy Verified 06/03/18 14:38 Physical Exam Vitals: Vital Signs Temp Pulse Pulse Pulse Resp BP BP 06/04/18 12:00 98 F 117 H 18 128/64 06/04/18 08:00 98 F 80 16 127/63 06/04/18 03:40 52 L 16 115/64 06/04/18 00:00 56 L 16 129/67 06/03/18 20:00 97.4 F L 75 16 102/61 06/03/18 17:30 96.3 F L 90 18 136/87 06/03/18 16:52 98 F 83 18 136/80 06/03/18 16:10 113 H 16 132/90 06/03/18 15:05 71 16 149/70 06/03/18 14:29 94 18 145/73 06/03/18 13:23 108 H 18 06/03/18 13:03 101 H 18 156/98 06/03/18 13:00 98.1 F 113 H 18 113/75 Pulse Ox 06/04/18 12:00 98 06/04/18 08:00 97 06/04/18 03:40 98 06/04/18 00:00 94 L 06/03/18 20:00 96 06/03/18 17:30 98 06/03/18 16:52 98 06/03/18 16:10 100 06/03/18 15:05 100 06/03/18 14:29 100 06/03/18 13:23 06/03/18 13:03 100 06/03/18 13:00 98 Intake and Output 06/03/18 06/04/18 06/04/18 22:59 06:59 14:59 Output Total 150 760 Balance -150 -760 Output: Urine 150 760 Other: Voiding Method Toilet Toilet Urinal Urinal # Voids 2 Weight 76.1 kg Results 06/04/18 02:45 06/03/18 13:15 Cardiac Enzymes 06/03/18 06/03/18 06/03/18 Range/Units 13:15 13:15 18:57 AST 25 (17-59) U/L CK-MB (CK-2) 1.6 2.1 (0.0-2.4) ng/mL Troponin I 0.209 H* 0.357 H* (0.000-0.034) ng/mL 06/04/18 Range/Units 02:45 AST (17-59) U/L CK-MB (CK-2) 3.1 H (0.0-2.4) ng/mL Troponin I 0.725 H* (0.000-0.034) ng/mL Coagulation 06/03/18 06/04/18 Range/Units 13:15 02:45 PT 10.5 (9.0-12.0) sec APTT 28.6 29.5 (22.0-30.0) sec Lipids 06/04/18 Range/Units 02:45 Triglycerides 79 (<150) mg/dL Cholesterol 125 (<200) mg/dL HDL Cholesterol 37 L (40-60) mg/dL CBC 06/03/18 06/04/18 Range/Units 13:15 02:45 WBC 5.6 5.2 (3.8-10.6) k/uL RBC 4.38 3.95 L (4.30-5.90) m/uL Hgb 13.2 12.0 L (13.0-17.5) gm/dL Hct 40.6 37.1 L (39.0-53.0) % Plt Count 111 L 99 L (150-450) k/uL Comprehensive Metabolic Panel 06/03/18 Range/Units 13:15 Sodium 139 (137-145) mmol/L Potassium 4.3 (3.5-5.1) mmol/L Chloride 101 (98-107) mmol/L Carbon Dioxide 27 (22-30) mmol/L BUN 19 (9-20) mg/dL Creatinine 0.85 (0.66-1.25) mg/dL Glucose 98 (74-99) mg/dL Calcium 9.5 (8.4-10.2) mg/dL AST 25 (17-59) U/L ALT 26 (21-72) U/L Alkaline Phosphatase 67 (38-126) U/L Total Protein 6.9 (6.3-8.2) g/dL Albumin 4.1 (3.5-5.0) g/dL Current Medications Generic Name Dose Route Start Last Admin Trade Name Freq PRN Reason Stop Dose Admin Acetaminophen 500 mg 06/03/18 18:13 Tylenol Tab PO HS PRN Pain Alprazolam 0.25 mg 06/04/18 10:49 Xanax PO Q6HR PRN Mild Anxiety Alprazolam 0.5 mg 06/04/18 10:49 Xanax PO Q6HR PRN Moderate Anxiety Aspirin 81 mg 06/04/18 09:00 06/04/18 07:43 Aspirin PO 81 mg DAILY PA Administration Atorvastatin Calcium 40 mg 06/03/18 21:00 06/04/18 11:24 Lipitor PO Not Given HS PA Colchicine 0.6 mg 06/03/18 21:00 06/04/18 07:43 Colcrys PO 0.6 mg BID PA Administration Digoxin 125 mcg 06/04/18 09:00 06/04/18 07:43 Lanoxin PO 125 mcg MoTuWeThFrSa PA Administration Diphenhydramine HCl 25 mg 06/03/18 18:19 Benadryl PO HS PRN SLEEP/PAIN Docusate Sodium 100 mg 06/03/18 18:13 Colace PO DAILY PRN Constipation Furosemide 40 mg 06/04/18 09:00 06/04/18 07:44 Lasix IV 40 mg DAILY PA Administration Heparin Sodium (Porcine) 0 unit 06/04/18 08:00 Heparin IV PER PROTOCOL PRN Low PTT Protocol Heparin Sodium/Sodium Chloride 500 mls @ 18.72 mls/hr 06/04/18 08:00 08:56 25,000 unit/ Sodium Chloride IV 12 units/kg/hr .Q24H PA 18.72 mls/hr Administration Protocol 12 UNITS/KG/HR Sodium Chloride 1,000 ml/ IV 1,000 mls @ 76.1 mls/hr 06/04/18 10:49 06/04/18 11:20 Solution IV 06/04/18 23:57 76.1 mls/hr .Q13H9M ONE Administration 1 ML/KG/HR Lactic Acid 1 applic 06/03/18 21:00 06/04/18 07:44 Ammonium Lactate TOPICAL 1 applic BID PA Administration Metoprolol Tartrate 25 mg 06/03/18 21:00 06/04/18 07:43 Lopressor PO 25 mg BID PA Administration Nitroglycerin 1 inch 06/04/18 00:00 06/04/18 06:15 Nitro-Bid Oint TOPICAL 1 inch Q6HR PA Administration Nitroglycerin 0.4 mg 06/04/18 10:49 Nitrostat SUBLINGUAL Q5M PRN Chest Pain Intake and Output 06/03/18 06/04/18 06/04/18 22:59 06:59 14:59 Output Total 150 760 Balance -150 -760 Output: Urine 150 760 Other: Voiding Method Toilet Toilet Urinal Urinal # Voids 2 Weight 76.1 kg 06/04/18 02:45 06/03/18 13:15
--- NOTE | 2018-06-04 13:44 | P.PN ---
Subjective Progress Note Date: 06/04/18 88 years old male patient of mine with the past medical history of atrial fibrillation, coronary artery disease status post triple-vessel CABGwith recent stent in 2009 comes in with acute onset substernal chest pain past associated with shortness of breath. He was seen in the office by Dr. Crawford.Patient had recent blood chronically checkup appointment and was found to have some electrolyte abnormality. Patient is found to the hospital by Dr. Crawford for evaluation. On evaluation in the ER patient had 0.209 with a second troponin 0.357. EKG showed significant ST depression in lead V1 to V6 with a rhythm in atrial fibrillation Chest pain improved with nitroglycerin paste. Patient was continued oneliquis . Cardiology consult was placed with plan for cardiac cath morning. Patient will be nothing by mouth. 06/04: Patient is doing a lot better today he denies any chest pain or shortness breath, he continues to be on heparin drip, he was off Eliquis, he would be scheduled for left heart catheterization her on today. Objective - Vital Signs Vital signs: Vital Signs Temp 97.4 F L 06/03/18 20:00 Pulse 52 L 06/04/18 03:40 Resp 16 06/04/18 03:40 BP 115/64 06/04/18 03:40 Pulse Ox 98 06/04/18 03:40 Intake & Output 06/03/18 06/04/18 06/04/18 18:59 06:59 18:59 Output Total 150 Balance -150 Weight 78.018 kg 76.1 kg Output: Urine 150 Other: Voiding Method Toilet Urinal # Voids 2 - Exam - Constitutional General appearance: cooperative, no acute distress, obese - EENT Eyes: anicteric sclerae, PERRLA, normal appearance ENT: hearing grossly normal - Neck Neck: no lymphadenopathy, normal ROM, no other, no rigidity, no stridor, no thyromegaly - Respiratory Respiratory: bilateral: CTA, negative: diminished, dullness, rales, rhonchi - Cardiovascular Rhythm: Irregularly irregular Heart sounds: normal: S1, S2 Abnormal Heart Sounds: 2+ systolic murmur, no diastolic murmur, no rub, no S3 Gallop, no S4 Gallop, no click, no other - Gastrointestinal General gastrointestinal: normal bowel sounds, soft nontender - Integumentary Integumentary: no rash - Neurologic Neurologic: CNII-XII intact - Musculoskeletal Musculoskeletal: Gait not assessed, strength equal bilaterally - Psychiatric Psychiatric: A&O x's 3, appropriate affect - Labs CBC & Chem 7: 06/04/18 02:45 06/03/18 13:15 Labs: Abnormal Lab Results - Last 24 Hours (Table) 06/03/18 06/03/18 06/03/18 Range/Units 13:15 13:15 18:57 RBC (4.30-5.90) m/uL Hgb (13.0-17.5) gm/dL Hct (39.0-53.0) % Plt Count 111 L (150-450) k/uL Total Creatine Kinase 45 L 47 L (55-170) U/L CK-MB (CK-2) (0.0-2.4) ng/mL Troponin I 0.209 H* 0.357 H* (0.000-0.034) ng/mL HDL Cholesterol (40-60) mg/dL 06/04/18 06/04/18 06/04/18 Range/Units 02:45 02:45 02:45 RBC 3.95 L (4.30-5.90) m/uL Hgb 12.0 L (13.0-17.5) gm/dL Hct 37.1 L (39.0-53.0) % Plt Count 99 L (150-450) k/uL Total Creatine Kinase (55-170) U/L CK-MB (CK-2) 3.1 H (0.0-2.4) ng/mL Troponin I 0.725 H* (0.000-0.034) ng/mL HDL Cholesterol 37 L (40-60) mg/dL Assessment and Plan Assessment: Assessment and Plan Plan: #1 NSTEMI with unstable angina. Switch eliquis to heparin drip. Nothing by mouth after midnight. Cardiology consult. Patient is scheduled to go for left heart catheterization, continue with metoprolol 25 minute gram twice every day, continue aspirin, continue Lipitor, continue nitroglycerin paste, please continue heparin drip, #2 history of coronary artery disease status post cardiac bypass with recent stent in 2009. Continue daily aspirin, metoprolol 25 twice a day, Lipitor 40 mg daily at bedtime #3 bilateral pleural effusion on CTA . Switch to by mouth Lasix to IV Lasix 40 daily. Hold if systolic blood pressure less than 90. Echocardiogram ordered #4 history of atrial fibrillation. Continue digoxin. Metoprolol 25 mg twice a day 5 hypertension continue metoprolol 25 po Twice daily. Lasix IV 40 by mouth daily. Hold systolic blood pressure less than 90 #6 hyperlipidemia continue atorvastatin 40 mg by mouth daily #DVT prophylaxis with heparin drip #8 GI prophylaxis with Pepcid 20 mg by mouth daily #9 thrombocytopenia. No evidence of HIT please continue heparin drip, monitor CBC daily.
[2018-06-04] MEDS ORDERED: LIDOCAINE 1% INJ 10MG/ML (20 ML MDV) ONE (14:00)
[2018-06-04] MEDS ORDERED: MIDAZOLAM 2 MG/2 ML VIAL ONE (14:00)
[2018-06-04] MEDS ORDERED: IV FLUID CONTINUATION 1,000 ML IV ONE (14:08)
[2018-06-04] MEDS ORDERED: MIDAZOLAM 2 MG/2 ML VIAL IVP ONE (14:10)
[2018-06-04] MEDS ORDERED: LIDOCAINE 1% (PF) 10MG/ML VIAL SQ ONE (14:14)
[2018-06-04] MEDS ORDERED: niCARdipine 25 MG/10 ML VIAL ONE (14:29)
--- NOTE | 2018-06-04 14:31 | ECHOF ---
Referral Reason:chest pain, elevated trops MEASUREMENTS -------- HEIGHT: 175.3 cm WEIGHT: 75.8 kg BP: 115/64 IVSd: 1.0 cm (0.6 - 1.1) LVIDd: 4.3 cm (3.9 - 5.3) LVPWd: 0.9 cm (0.6 - 1.1) IVSs: 1.5 cm LVIDs: 3.7 cm LVPWs: 1.2 cm Ao Diam: 2.6 cm (2.0 - 3.7) AV Cusp: 1.0 cm (1.5 - 2.6) LA Diam: 4.9 cm (2.7 - 3.8) MV EXCURSION: 21.171 mm (> 18.000) MV EF SLOPE: 146 mm/s (70 - 150) EPSS: 0.8 cm MV E [place]: 0.74 m/s MV DecT: 167 ms MV A [place]: 0.28 m/s MV E/A Ratio: 2.68 AV maxP.40 mmHg AV meanP.26 mmHg AR PHT: 223 ms RAP: 5.00 mmHg RVSP: 23.85 mmHg FINDINGS -------- Undetermined rhythm. This was a technically difficult study with suboptimal views. The left ventricular size is normal. There is mild concentric left ventricular hypertrophy. Overa ll left ventricular systolic function is moderate-severely impaired with, an EF between 30 - 35 %. Inferiorlateral Hypokinesis The right ventricle is normal in size and function. The left atrium is moderately dilated. The right atrium is normal in size. Lumason used Aortic valve is trileaflet and is moderately thickened. Trace amount of aortic regurgitation. Th ere is mild aortic stenosis present. Peak/mean gradient across the Aortic Valve is 17.40mmHg / 9.26 mmHg. The mitral valve leaflets are mildly thickened. Mild mitral regurgitation is present. Mild tricuspid regurgitation present. The right ventricular systolic pressure, as measured by Doppl er, is 23.85mmHg. Pulmonic valve appears structurally normal. The pericardium is normal. CONCLUSIONS -------- 1. Undetermined rhythm. 2. This was a technically difficult study with suboptimal views. 3. The left ventricular size is normal. 4. There is mild concentric left ventricular hypertrophy. 5. Overall left ventricular systolic function is moderate-severely impaired with, an EF between 30 - 35 %. 6. Inferiorlateral Hypokinesis 7. The right ventricle is normal in size and function. 8. The left atrium is moderately dilated. 9. The right atrium is normal in size. 10. Lumason used 11. Aortic valve is trileaflet and is moderately thickened. 12. Trace amount of aortic regurgitation. 13. There is mild aortic stenosis present. 14. Peak/mean gradient across the Aortic Valve is 17.40mmHg / 9.26mmHg. 15. The mitral valve leaflets are mildly thickened. 16. Mild mitral regurgitation is present. 17. Mild tricuspid regurgitation present. 18. The right ventricular systolic pressure, as measured by Doppler, is 23.85mmHg. 19. Pulmonic valve appears structurally normal. 20. The pericardium is normal. ADJUNCT PROFESSOR: Marjorie Groves RDCS
[2018-06-04] MEDS ORDERED: BIVALIRUDIN 250 MG in SODIUM CHLORIDE 0.9% 50 ML IV ONE (14:32)
[2018-06-04] MEDS ORDERED: BIVALIRUDIN BOLUS 250 MG/50 ML IV ONE (14:32)
[2018-06-04] MEDS ORDERED: CLOPIDOGREL 75 MG TAB ONE (14:32)
[2018-06-04] MEDS: niCARdipine Syringe (1,000 mcg/10 mL) INTRACORON ONE ×2 (14:35→14:39)
[2018-06-04] MEDS ORDERED: METOPROLOL TARTRATE 5 MG/5 ML VIAL IVP ONE ×2 (14:37→14:38)
[2018-06-04] MEDS ORDERED: CLOPIDOGREL 75 MG TAB PO ONE (14:38)
[2018-06-04] MEDS ORDERED: IOPAMIDOL-370 125ML BTL INJ ONE (14:44)
[2018-06-04] MEDS ORDERED: IOPAMIDOL-370 100ML BTL INJ ONE (14:50)
[2018-06-04] MEDS ORDERED: MAG HYDROX/AL HYDROX/SIMETH 30 ML CUP PO PRN (15:00)
[2018-06-04] MEDS ORDERED: ZOLPIDEM 5 MG TAB PO PRN (15:00)
[2018-06-04] MEDS ORDERED: ATROPINE SULFATE 0.1 MG/ML 10ML SYRINGE IV PRN (15:00)
[2018-06-04] MEDS ORDERED: SODIUM CHLORIDE 0.9% 1,000 ML IV SCH (15:00)
[2018-06-04] MEDS ORDERED: RX INFO: IV CONTRAST WAS GIVEN 1 EACH MISC MISCELLANE PRN (15:00)
--- NOTE | 2018-06-04 17:43 | LTR ---
June 04, 2018 To: Dr. Crawford Re: Navin Oropeza (1930) Dear Dr. Crawford: Mr. Navin Oropeza underwent heart catheterization and successful stenting of the SVG to left circumflex and SVG to RCA. Thank you for allowing us to participate in his care. Please do not hesitate to call if you have any question or concern. Sincerely, MD COLLIN Faye / ALTA: [id number] /
[2018-06-04] MEDS: DILTIAZEM 50 MG in SODIUM CHLORIDE 0.9% 40 ML IV SCH (17:59)
--- NOTE | 2018-06-04 20:13 | CC ---
CARDIAC CATHETERIZATION REPORT DATE OF SERVICE: June 04, 2018 PERFORMING PHYSICIAN: Husam Barrera MD, structural manager. PROCEDURES PERFORMED: 1. Selective left and right coronary angiogram. 2. Left internal mammary artery angiogram. 3. Saphenous vein graft to left circumflex/obtuse marginal angiogram. 4. Saphenous vein graft to right coronary artery angiogram. 5. Left heart catheterization. 6. Successful stenting of the saphenous vein graft to left circumflex/obtuse marginal using a 2.75 x 18 mm Xience ANITA with a good angiographic result and reduction of stenosis from 99% to 0% off. 7. Successful stenting of the saphenous vein graft to right coronary artery using 3.0 x 18 mm Xience ANITA with good angiographic results and reduction of stenosis from 80% to 0%. INDICATION: This is a pleasant 88-year-old gentleman, who sees Dr. Crawford in the office as an outpatient, with known history of coronary artery disease and prior coronary artery bypass grafting, where in 1998, he received CABG x3 with TIWARI to LAD, SVG to OM, and SVG to RCA, currently not following with any counter intelligence agent, presented to the hospital with chest discomfort concerning for angina. He was seen by Dr. Perez, who recommended proceeding with a heart catheterization. APPROACH: Right common femoral artery. COMPLICATION: None. LEVEL OF SEDATION: Moderate with sedation length of 42 minutes. PROCEDURE DESCRIPTION: After obtaining an informed consent, the patient was brought to the cardiac chemical laboratory technician. The right common femoral artery was cannulated using micropuncture technique and the micropuncture wire passed easily. Then I placed a 6-Zimbabwean sheath in the right common femoral artery. After that, I did selective left and right coronary angiogram using JL4 and JR4 catheters. I did SVG to RCA, SVG to OM, and TIWARI to LAD angiogram using the JR4 catheter. Left heart catheterization was performed using 6-Zimbabwean pigtail catheter. After that, I did intervene on the SVG to OM and SVG to RCA. Please see a separate paragraph for that. Selective coronary angiogram: 1. The left main is a large caliber vessel with critical disease distally. 2. The left circumflex is chronically occluded in the proximal portion. 3. The LAD is chronically occluded after a small to medium sized diagonal branch. 4. The RCA is chronically occluded in the midportion. Coronary bypass angiogram: 1. SVG to RCA is stented in the midportion. In the mid to distal portion, there was a lesion, appeared to be in the range of 80%. 2. SVG to left circumflex has a critical lesion in the midportion, appeared to be in the range of 99%. 3. TIWARI to LAD is patent. Hemodynamics: The left ventricular end-diastolic pressure was 8 mmHg and no gradient was identified across the aortic valve. PERCUTANEOUS INTERVENTION OF THE THE SAPHENOUS VEIN GRAFT TO LEFT CIRCUMFLEX AND SAPHENOUS VEIN GRAFT TO RIGHT CORONARY ARTERY: Anticoagulation was initiated using Angiomax. Subsequently, I did engage the SVG to the circumflex using JR4 catheter. I did wire it using a Whisper wire. I did direct stenting on the lesion using 2.75 x 18 mm Xience ANITA, where the stent was positioned under fluoroscopy guidance and deployed under fluoroscopy guidance. The following angiogram showed good angiographic results with good flow in the graft. After that, I did engage the SVG to RCA using the same guide, which was JR4 guide. I did wire it using the using the same wire which was a Whisper J wire. I did also direct stenting on that graft using 3.0 x 18 mm Xience ANITA, where the stent again was positioned under fluoroscopy guidance and deployed under its nominal pressure. Following angiogram showed good angiographic results. The procedure was completed without any complication. CONCLUSION: 1. Severe triple-vessel coronary artery disease with occluded left anterior descending artery, left circumflex, and right coronary artery. 2. Patent left internal mammary artery to left anterior descending. 3. Critical disease involving the saphenous vein graft to left circumflex. 4. Severe disease involving the saphenous vein graft to right coronary artery. 5. Successful stenting of both saphenous vein graft to left circumflex and right coronary artery as described above. POSTPROCEDURE MANAGEMENT: 1. Dual anti-platelet therapy. 2. Risk factor modifications. 3. Aggressive cholesterol control. 4. Follow up with the patient. MMODL / IJN: [id number] /
[2018-06-05] MEDS: NITROGLYCERIN OINT 1 INCH/GM PACKET TOPICAL SCH (05:35)
[2018-06-05 05:58] LABS: Basophils % (A) 0 %; Eosinophils # (A) 0.1 k/uL (0-0.7); Eosinophils % (A) 2 %; HCT 39.1 % (39.0-53.0); HGB 12.3 gm/dL (13.0-17.5); Lymphocytes # (A) 0.9 k/uL (1.0-4.8); Lymphocytes % (A) 16 %; MCH 29.6 pg (25.0-35.0); MCHC 31.6 g/dL (31.0-37.0); MCV 93.9 fL (80.0-100.0); Mean Platelet Volume 7.7; Monocytes # (A) 0.5 k/uL (0-1.0); Monocytes % (A) 8 %; Neutrophils # (A) 4.2 k/uL (1.3-7.7); Neutrophils % (A) 73 %; Platelet Count 101 k/uL (150-450); RBC 4.16 m/uL (4.30-5.90); WBC 5.8 k/uL (3.8-10.6)
[2018-06-05 06:07] LABS: ALT 23 U/L (21-72); AST 32 U/L (17-59); Albumin 3.5 g/dL (3.5-5.0); Alkaline Phosphatase 62 U/L (38-126); Anion Gap 9 mmol/L; Blood Urea Nitrogen 17 mg/dL (9-20); Carbon Dioxide 26 mmol/L (22-30); Chloride 103 mmol/L (98-107); Glucose 83 mg/dL (74-99); Potassium 3.9 mmol/L (3.5-5.1); Sodium 138 mmol/L (137-145); Total Bilirubin 1.1 mg/dL (0.2-1.3); Total Protein 6.2 g/dL (6.3-8.2)
[2018-06-05] MEDS: DILTIAZEM 50 MG in SODIUM CHLORIDE 0.9% 40 ML IV SCH (07:04)
[2018-06-05] MEDS ORDERED: DILTIAZEM 50 MG in SODIUM CHLORIDE 0.9% 40 ML IV SCH (07:30)
[2018-06-05] MEDS: FUROSEMIDE 10 MG/ML 4 ML VIAL IV SCH (08:08)
[2018-06-05] MEDS: COLCHICINE 0.6 MG EACH PO SCH ×2 (08:08→21:48)
[2018-06-05] MEDS: CLOPIDOGREL 75 MG TAB PO SCH (08:08)
[2018-06-05] MEDS: AMMONIUM LACTATE 12% CREAM 140 GM TUBE TOPICAL SCH ×2 (08:08→21:43)
[2018-06-05] MEDS: ASPIRIN 81 MG PO SCH (08:08)
[2018-06-05] MEDS ORDERED: METOPROLOL TARTRATE 50 MG TAB PO SCH (09:00)
[2018-06-05] MEDS: APIXABAN 2.5 MG TABLET PO SCH ×2 (09:12→21:48)
--- NOTE | 2018-06-05 09:45 | P.PN ---
Subjective Progress Note Date: 06/05/18 88 years old male patient of mine with the past medical history of atrial fibrillation, coronary artery disease status post triple-vessel CABGwith recent stent in 2009 comes in with acute onset substernal chest pain past associated with shortness of breath. He was seen in the office by Dr. Crawford.Patient had recent blood chronically checkup appointment and was found to have some electrolyte abnormality. Patient is found to the hospital by Dr. Crawford for evaluation. On evaluation in the ER patient had 0.209 with a second troponin 0.357. EKG showed significant ST depression in lead V1 to V6 with a rhythm in atrial fibrillation Chest pain improved with nitroglycerin paste. Patient was continued oneliquis . Cardiology consult was placed with plan for cardiac cath morning. Patient will be nothing by mouth. 06/04: Patient is doing a lot better today he denies any chest pain or shortness breath, he continues to be on heparin drip, he was off Eliquis, he would be scheduled for left heart catheterization her on today. 06/05: Patient underwent left heart catheterization yesterday with and underwent PCI of the saphenous venous graft to the LCX branch and saphenous venous graft to the RCA, continue patient on aspirin, Plavix, beta chase, statin, hopefully he will be discharged home in the next 24 hours, she has no chest pain or shortness breath at this time he has no abdominal pain, nausea, he has no hematemesis or hematochezia. Objective - Vital Signs Vital signs: Vital Signs Temp 99 F 06/05/18 08:00 Pulse 71 06/05/18 08:00 Resp 16 06/05/18 08:00 BP 107/69 06/05/18 08:00 Pulse Ox 98 06/05/18 08:00 Intake & Output 06/04/18 06/05/18 06/05/18 18:59 06:59 18:59 Intake Total 216 11.75 Output Total 1260 400 Balance -1044 -388.25 Weight 74.3 kg Intake: IV 116 Intake, IV Titration 11.75 Amount Diltiazem 50 mg In Sodium 11.75 Chloride 0.9% 40 ml @ 5 MG/HR 5 mls/hr IV .Q10H [facility] Rx#:[id number] Oral 100 Output: Urine 1260 400 Other: Voiding Method Urinal # Voids 1 # Bowel Movements 1 1 - Exam - Constitutional General appearance: cooperative, no acute distress, obese - EENT Eyes: anicteric sclerae, PERRLA, normal appearance ENT: hearing grossly normal - Neck Neck: no lymphadenopathy, normal ROM, no other, no rigidity, no stridor, no thyromegaly - Respiratory Respiratory: bilateral: CTA, negative: diminished, dullness, rales, rhonchi - Cardiovascular Rhythm: Irregularly irregular Heart sounds: normal: S1, S2 Abnormal Heart Sounds: 2+ systolic murmur, no diastolic murmur, no rub, no S3 Gallop, no S4 Gallop, no click, no other - Gastrointestinal General gastrointestinal: normal bowel sounds, soft nontender - Integumentary Integumentary: no rash - Neurologic Neurologic: CNII-XII intact - Musculoskeletal Musculoskeletal: Gait not assessed, strength equal bilaterally - Psychiatric Psychiatric: A&O x's 3, appropriate affect - Labs CBC & Chem 7: 06/05/18 05:39 06/05/18 05:39 Labs: Abnormal Lab Results - Last 24 Hours (Table) 06/05/18 06/05/18 Range/Units 05:39 05:39 RBC 4.16 L (4.30-5.90) m/uL Hgb 12.3 L (13.0-17.5) gm/dL Plt Count 101 L (150-450) k/uL Lymphocytes # 0.9 L (1.0-4.8) k/uL Total Protein 6.2 L (6.3-8.2) g/dL Assessment and Plan Assessment: Assessment and Plan Plan: #1 NSTEMI with unstable angina. Post left heart catheterization with PCI of the SVG to LCx and SVG to RCA. Continue aspirin, Plavix, Lipitor, metoprolol. #2 history of coronary artery disease status post cardiac bypass with recent stent in 2009. Continue daily aspirin, metoprolol 50 twice a day, Lipitor 40 mg daily at bedtime #3 bilateral pleural effusion on CTA . Switch to by mouth Lasix to IV Lasix 40 daily. Hold if systolic blood pressure less than 90. Echocardiogram ordered #4 history of atrial fibrillation. Patient will be maintained on Eliquis 2.5 mg orally twice every day, metoprolol 50 mg orally twice every day. 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 Continue patient on metoprolol 50 mg orally twice every day #6 hyperlipidemia continue atorvastatin 40 mg by mouth daily #DVT prophylaxis . On Eliquis 2.5 mg orally twice every day. #8 GI prophylaxis with Pepcid 20 mg by mouth daily #9 thrombocytopenia. Better. #10 home tomorrow morning
--- NOTE | 2018-06-05 09:58 | P.PN ---
Subjective Patient is doing well. He is ablating the hallways. He is feeling a lot better. No chest pain dizziness lightheadedness yesterday underwent coronary stenting successfully Drug-eluting stent was placed in the SVG to left circumflex and in the SVG to RCA. His 2-D echo showed inferior lateral hypokinesis on 2-D echo He is chest pain-free no dizziness lightheadedness no palpitations On examination blood pressures 107/69 mmHg respirations are normal pulse rate is in the 70s to 90s temperature 90.9F Breath sounds are reduced bilaterally but there are no rhonchi no crackles Heart sounds are normal soft ejection systolic murmur Abdomen soft nontender No lower extremity edema The access site is healed well was no hematoma Impression Patient admitted with a non-Q-wave myocardial infarction 2-D echo shows an inferior lateral hypokinesis Drug-eluting stent to the SVG to RCA as well as the SVG to left circumflex Ischemic cardiopathy myopathy, 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% with inferolateral hypokinesis Very mild aortic stenosis Improving now Suggest maximal medical treatment Restart ELIQUIS today 2.5 g twice daily continue dual antiplatelet therapy aspirin and Plavix In one month we will stop aspirin and continue with Plavix plus ELIQUIS only I will DC IV Lasix Telemetry metoprolol Continue atorvastatin 40 mrem by mouth daily Ambulate in the hallways and watch on telemetry for the next 48 hours We'll restart oral Lasix tomorrow or preferably spironolactone He takes simvastatin at home which I will switch to atorvastatin He takes Lasix plus oral potassium and I'll prefer to start him on spironolactone instead potassium is 3.9 renal function is normal BMP tomorrow and then switched to long-acting metoprolol and add low dose jose inhibitors or angiotensin receptor blockers We'll follow the patient is an outpatient Objective - Vital Signs Vital signs: Vital Signs Temp 99 F 06/05/18 08:00 Pulse 71 06/05/18 08:00 Resp 16 06/05/18 08:00 BP 107/69 06/05/18 08:00 Pulse Ox 98 06/05/18 08:00 Intake & Output 06/04/18 06/05/18 06/05/18 18:59 06:59 18:59 Intake Total 216 11.75 Output Total 1260 400 Balance -1044 -388.25 Weight 74.3 kg Intake: IV 116 Intake, IV Titration 11.75 Amount Diltiazem 50 mg In Sodium 11.75 Chloride 0.9% 40 ml @ 5 MG/HR 5 mls/hr IV .Q10H REPLACED BY [facility] Rx#:[id number] Oral 100 Output: Urine 1260 400 Other: Voiding Method Urinal # Voids 1 # Bowel Movements 1 1 - Labs CBC & Chem 7: 06/05/18 05:39 06/05/18 05:39 Labs: Abnormal Lab Results - Last 24 Hours (Table) 06/05/18 06/05/18 Range/Units 05:39 05:39 RBC 4.16 L (4.30-5.90) m/uL Hgb 12.3 L (13.0-17.5) gm/dL Plt Count 101 L (150-450) k/uL Lymphocytes # 0.9 L (1.0-4.8) k/uL Total Protein 6.2 L (6.3-8.2) g/dL
[2018-06-05] MEDS: METOPROLOL TARTRATE 50 MG TAB PO SCH ×2 (14:47→21:48)
[2018-06-05] MEDS: ATORVASTATIN 40 MG TAB PO SCH (21:48)
[2018-06-06 06:33] LABS: Basophils % (A) 0 %; Eosinophils # (A) 0.1 k/uL (0-0.7); Eosinophils % (A) 2 %; HCT 43.1 % (39.0-53.0); HGB 13.4 gm/dL (13.0-17.5); Lymphocytes # (A) 1.6 k/uL (1.0-4.8); Lymphocytes % (A) 24 %; MCH 29.3 pg (25.0-35.0); MCHC 31.2 g/dL (31.0-37.0); MCV 93.9 fL (80.0-100.0); Mean Platelet Volume 7.8; Monocytes # (A) 0.5 k/uL (0-1.0); Monocytes % (A) 7 %; Neutrophils # (A) 4.5 k/uL (1.3-7.7); Neutrophils % (A) 66 %; Platelet Count 127 k/uL (150-450); RBC 4.59 m/uL (4.30-5.90); RDW 13.9 % (11.5-15.5); WBC 6.8 k/uL (3.8-10.6)
[2018-06-06 06:46] LABS: Albumin 3.9 g/dL (3.5-5.0); Calcium 9.2 mg/dL (8.4-10.2); Potassium 3.7 mmol/L (3.5-5.1); Total Bilirubin 1.1 mg/dL (0.2-1.3); Total Protein 6.7 g/dL (6.3-8.2)
[2018-06-06] MEDS: APIXABAN 2.5 MG TABLET PO SCH (08:07)
[2018-06-06] MEDS: COLCHICINE 0.6 MG EACH PO SCH (08:07)
[2018-06-06] MEDS: CLOPIDOGREL 75 MG TAB PO SCH (08:07)
[2018-06-06] MEDS: METOPROLOL TARTRATE 50 MG TAB PO SCH (08:07)
[2018-06-06] MEDS: ASPIRIN 81 MG PO SCH (08:07)
[2018-06-06] MEDS: AMMONIUM LACTATE 12% CREAM 140 GM TUBE TOPICAL SCH (08:10)
[2018-06-06 08:11] VITALS: RESP 18
[2018-06-06] MEDS ORDERED: SPIRONOLACTONE 25 MG TAB PO SCH (09:00)
[2018-06-06 09:48] VITALS: BMI 23.8
[2018-06-06 11:57] VITALS: BP 131/57; PULSE 84; TEMP 97.9
--- NOTE | 2018-06-06 12:20 | P.DS ---
Providers Date of admission: 06/04/18 11:20 Attending physician: Hodan Bunch MD Consults: 06/03/18 16:14 Consult Physician Urgent Consulting Provider: Ann Marie Braun Consult Reason/Comments: elevated troponin Do you want consulting provider notified?: Yes 06/04/18 15:00 Consult Physician Routine Consulting Provider: [facility] Consult Reason/Comments: Post Interventional patient Do you want consulting provider notified?: Already Contacted Primary care physician: Sharla Crawford Hospital Course: 88 years old male patient of mine with the past medical history of atrial fibrillation, coronary artery disease status post triple-vessel CABGwith recent stent in 2009 comes in with acute onset substernal chest pain past associated with shortness of breath. He was seen in the office by Dr. Crawford.Patient had recent blood chronically checkup appointment and was found to have some electrolyte abnormality. Patient is found to the hospital by Dr. Crawford for evaluation. On evaluation in the ER patient had 0.209 with a second troponin 0.357. EKG showed significant ST depression in lead V1 to V6 with a rhythm in atrial fibrillation Chest pain improved with nitroglycerin paste. Patient was continued oneliquis . Cardiology consult was placed with plan for cardiac cath morning. Patient will be nothing by mouth. 06/04: Patient is doing a lot better today he denies any chest pain or shortness breath, he continues to be on heparin drip, he was off Eliquis, he would be scheduled for left heart catheterization her on today. 06/05: Patient underwent left heart catheterization yesterday with and underwent PCI of the saphenous venous graft to the LCX branch and saphenous venous graft to the RCA, continue patient on aspirin, Plavix, beta chase, statin, hopefully he will be discharged home in the next 24 hours, she has no chest pain or shortness breath at this time he has no abdominal pain, nausea, he has no hematemesis or hematochezia. 06/06: Patient denies any chest pain, shortness of breath, nausea, or vomiting. Spironolactone added, will continue on beta chase, statin, and Eliquis along with Plavix. He has been up and ambulating in the room and hallways, vital signs are stable . Will be discharged home today Discharge diagnoses #1 NSTEMI with unstable angina. Post left heart catheterization with PCI of the SVG to LCx and SVG to RCA. #2 history of coronary artery disease status post cardiac bypass with recent stent in 2009. #3 bilateral pleural effusion on CTA . #4 history of atrial fibrillation. 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 #6 hyperlipidemia #7 thrombocytopenia. The above impression and plan of care have been discussed and directed by signing physician. Jerica Mann nurse practitioner acting as scribe for signing physician. Patient Condition at Discharge: Good Plan - Discharge Summary Discharge Rx Participant: No New Discharge Prescriptions: New Apixaban [Eliquis] 2.5 mg PO BID #0 tablet Atorvastatin [Lipitor] 40 mg PO HS #30 tab Clopidogrel [Plavix] 75 mg PO DAILY tab Metoprolol Tartrate [Lopressor] 50 mg PO TID #90 tab Nitroglycerin Sl Tabs [Nitrostat] 0.4 mg SUBLINGUAL Q5M PRN tab PRN Reason: Chest Pain Spironolactone [Aldactone] 25 mg PO DAILY #30 tab Clopidogrel [Plavix] 75 mg PO DAILY #30 tablet Continue Docusate [Colace] 100 mg PO DAILY PRN PRN Reason: Constipation Acetaminophen/Diphenhydramine [Tylenol PM Extra Strength] 1 tab PO HS PRN PRN Reason: Pain Ammonium Lactate Cream [Lac-Hydrin 12% Cream] 1 applic TOPICAL BID Isosorbide Mononitrate ER [Imdur] 15 mg PO DAILY Furosemide [Lasix] 40 mg PO DAILY #0 Nitroglycerin Sl Tabs [Nitrostat] 0.4 mg SUBLINGUAL Q5M PRN #30 tab PRN Reason: Chest Pain Discontinued Aspirin EC [Ecotrin Low Dose] 81 mg PO DAILY Metoprolol Tartrate [Lopressor] 25 mg PO TID Colchicine 0.6 mg PO BID methylPREDNISolone Dose Pack [Medrol Dose Pack] See Taper PO DIRECTED Discharge Medication List Acetaminophen/Diphenhydramine [Tylenol PM Extra Strength] 1 tab PO HS PRN [History] Ammonium Lactate Cream [Lac-Hydrin 12% Cream] 1 applic TOPICAL BID 06/03/18 [ History] Docusate [Colace] 100 mg PO DAILY PRN 06/03/18 [History] Isosorbide Mononitrate ER [Imdur] 15 mg PO DAILY 06/03/18 [History] Apixaban [Eliquis] 2.5 mg PO BID #0 tablet 06/06/18 [Rx] Atorvastatin [Lipitor] 40 mg PO HS #30 tab 06/06/18 [Rx] Clopidogrel [Plavix] 75 mg PO DAILY tab 06/06/18 [Rx] Clopidogrel [Plavix] 75 mg PO DAILY #30 tablet 06/06/18 [Rx] Furosemide [Lasix] 40 mg PO DAILY #0 06/06/18 [Rx] Metoprolol Tartrate [Lopressor] 50 mg PO TID #90 tab 06/06/18 [Rx] Nitroglycerin Sl Tabs [Nitrostat] 0.4 mg SUBLINGUAL Q5M PRN tab 06/06/18 [Rx] Nitroglycerin Sl Tabs [Nitrostat] 0.4 mg SUBLINGUAL Q5M PRN #30 tab 06/06/18 [Rx ] Spironolactone [Aldactone] 25 mg PO DAILY #30 tab 06/06/18 [Rx] Follow up Appointment(s)/Referral(s): Gaudencio Perez MD [STAFF PHYSICIAN] - 06/22/18 11:00 am (1-2 week follow up with Dr. Perez and Nitza Cassidy [employer].) Sharla Crawford MD [Primary Care Provider] - 06/21/18 11:45 am (If you have any concerns before this appointment, please call office to be seen by a nurse practitioner.) Patient Instructions/Handouts: *Surgery [facility] - After Heart Catheterization - Php Architect Instructions, A-fib (Atrial Fibrillation) (DC), Left Heart Catheterization (DC) Discharge Disposition: HOME SELF-CARE
--- NOTE | 2018-06-06 14:16 | P.PN ---
Subjective Progress Note Date: 06/06/18 This is a pleasant 88-year-old gentleman with known history of coronary artery disease, he states he had history of coronary artery bypass grafting surgery in 1998, he also states that subsequent to that he had 2 times stents placed, he forgets exactly how long ago it was but states that he thinks it was approximately 7 or 8 years ago. He has history also of persistent atrial fibrillation, hypertension, hyperlipidemia, GERD. He presents to the hospital on this occasion with symptoms of chest pressure and heaviness which radiates across his chest, he states that he also feels mildly short of breath at these times. These symptoms usually occur when he wakes up in the morning, he has been experiencing these symptoms off and on for the past couple of weeks , prior to that he states he had been feeling quite well overall. Chest x-ray on admission here showed blunting of the posterior lateral left costophrenic angle, atelectasis favored over effusion. Lungs otherwise clear. CTA of the chest negative for pulmonary embolism, small to moderate left-sided pleural effusion noted. EKG on arrival here showed atrial fibrillation with ST depression noted in the lateral leads. Subsequent EKG continues to show atrial fibrillation with ST depression in the anterior lateral leads. Blood pressure on arrival here 114/74, heart rate 100, 98% on room air. I pressure this morning 126/60 heart rate in the 80s, 97% on room air. Laboratory data has been reviewed, white blood cell count 5.2, hemoglobin 12.0, platelet count 99, d -dimer 0.4. Sodium 139, potassium 4.3, BUN 19, creatinine 0.8. Stool for occult blood was negative. Troponins 0.20, 0.35, 0.72. Patient on Eliquis for anticoagulation, this was discontinued and he was initiated on IV heparin drip. He is currently chest pain-free. 06/06/2018 Patient was taken to the cardiac catheterization lab by Dr. Blackwood where he underwent angioplasty and stenting of the right coronary artery and the circumflex artery. He was seen and examined this morning, states he's been up ambulating in the hallway 3 times a day today, denies any chest pain, no difficulty in breathing. Blood pressure 112/70 with a heart rate in the 90s, 100% on room air. White blood cell count 6.8, hemoglobin 13.4, platelet count 127. Sodium 137, potassium 3.7, BUN 23, creatinine 0.8. Objective - Vital Signs Vital signs: Vital Signs Temp 97.9 F 06/06/18 11:56 Pulse 84 06/06/18 11:56 Resp 18 06/06/18 11:56 BP 131/57 06/06/18 11:56 Pulse Ox 96 06/06/18 11:56 Intake & Output 06/05/18 06/06/18 06/06/18 18:59 06:59 18:59 Intake Total 90 120 Balance 90 120 Weight 73.3 kg 73.3 kg Intake: Oral 90 120 Other: Voiding Method Toilet Urinal # Voids 4 1 # Bowel Movements 1 - Exam PHYSICAL EXAMINATION: GENERAL: This is an 88-year-old gentleman in no acute distress at the time of my examination HEENT: Head is atraumatic, normocephalic. Pupils equal, round. Sclera anicteric. Conjunctiva are clear. Mucous membranes of the mouth are moist. Neck is supple. There is no elevated jugular venous pressure. No carotid bruit is heard. HEART EXAMINATION: Heart S1, S2 normal. No murmur or gallop heard. CHEST EXAMINATION: Lungs are clear with diminished air entry to bilateral bases. ABDOMEN: Soft, nontender. Bowel sounds are heard. No organomegaly noted. EXTREMITIES: 2+ peripheral pulses with no evidence of peripheral edema and no calf tenderness noted. NEUROLOGIC patient is awake, alert and oriented X3. . - Labs CBC & Chem 7: 06/06/18 06:15 06/06/18 06:15 Labs: Abnormal Lab Results - Last 24 Hours (Table) 06/06/18 06/06/18 Range/Units 06:15 06:15 Plt Count 127 L (150-450) k/uL BUN 23 H (9-20) mg/dL Assessment and Plan Plan: Assessment and plan #1 non-ST elevation myocardial infarction, status post angioplasty and stenting of the RCA and circumflex #2 known history of coronary artery disease with prior bypass surgery in 1998 subsequent to that patient did undergo successful stenting of the saphenous vein graft to the right coronary artery in 2009 #3 hypertension #4 hyperipidemia #5 chronic persistent atrial fibrillation, on Eliquis at home for anticoagulation, this has currently been placed on hold and patient is on IV heparin drip. Plan Echocardiogram with Doppler study was performed which revealed an ejection fraction of 30-35%. From cardiology's perspective, patient should be able to be discharged home today, to follow-up in the office with Dr. Perez in 2-3 weeks. DNP note has been reviewed, I agree with a documented findings and plan of care. Patient was seen and examined.
== END 2018-06-06 13:33 | disposition home or self-care (01) | DRG 247 ==
LOC: EC 12:58 → 6SEL 16:14 → OBSVTOIN 06-04 11:20 → 6SEL 06-06 13:33
PROVIDERS: ADMIT Internal Medicine; ATTEND Internal Medicine
PROC: B2111ZZ Fluoroscopy of Multiple Coronary Arteries using Low Osmolar Contrast (ICD-10-PCS; 2018-06-04)
PROC: B2181ZZ Fluoroscopy of Left Internal Mammary Bypass Graft using Low Osmolar Contrast (ICD-10-PCS; 2018-06-04)
PROC: 4A023N7 Measurement of Cardiac Sampling and Pressure, Left Heart, Percutaneous Approach (ICD-10-PCS; principal; 2018-06-04 14:00)
PROC: 027135Z Dilation of Coronary Artery, Two Arteries with Two Drug-eluting Intraluminal Devices, Percutaneous Approach (ICD-10-PCS; 2018-06-04 14:00)
PROC: B2131ZZ Fluoroscopy of Multiple Coronary Artery Bypass Grafts using Low Osmolar Contrast (ICD-10-PCS; 2018-06-04 14:00)
DX: I21.4 Non-ST elevation (NSTEMI) myocardial infarction (principal); I48.1 Persistent atrial fibrillation; J90 Pleural effusion, not elsewhere classified; J98.11 Atelectasis; I25.110 Atherosclerotic heart disease of native coronary artery with unstable angina pectoris; D69.6 Thrombocytopenia, unspecified; E78.5 Hyperlipidemia, unspecified; I11.9 Hypertensive heart disease without heart failure; I25.2 Old myocardial infarction; I25.710 Atherosclerosis of autologous vein coronary artery bypass graft(s) with unstable angina pectoris; Z95.1 Presence of aortocoronary bypass graft; Z95.5 Presence of coronary angioplasty implant and graft; Z87.891 Personal history of nicotine dependence; I35.0 Nonrheumatic aortic (valve) stenosis; I48.2 Chronic atrial fibrillation; K21.9 Gastro-esophageal reflux disease without esophagitis; R79.1 Abnormal coagulation profile; Z66 Do not resuscitate; Z79.01 Long term (current) use of anticoagulants; Z79.899 Other long term (current) drug therapy; Z80.8 Family history of malignant neoplasm of other organs or systems; Z85.828 Personal history of other malignant neoplasm of skin; Z79.82 Long term (current) use of aspirin; M10.9 Gout, unspecified; M19.90 Unspecified osteoarthritis, unspecified site; Z90.79 Acquired absence of other genital organ(s)
CPT/HCPCS: 36415; 71046; 71275; 80053; 80061; 82272; 82550; 82553; 83735; 84484; 85025; 85379; 85610; 85730; 93005; 93306; 93458; 99285